=== PATIENT | male | born 1955 | race Caucasian/White ===

== ENCOUNTER 2021-08-25 03:49 | Observation (INO) ==
[2021-08-25] MEDS ORDERED: NS 0.9% 1000 ml BAG 1,000 ML IV ONE (04:06)
[2021-08-25] MEDS ORDERED: Albuterol/Ipratropium NEB.SOL (2.5/0.5 MG) 3 ML NEB.SOLN INH ONE ×2 (04:08→05:12)
[2021-08-25 04:39] LABS: ABS Lymphocytes 0.4 10^3/ul (1.0-4.8); ABS Monocytes 0.8 10^3/ul (0-0.8); ABS Neutrophils 11.8 10^3/ul (1.5-7.7); Eosinophil % 0.3 %; Hematocrit 43 % (42-52); Hemoglobin 14.1 g/dL (14.0-18.0); Lymphocyte % 3.2 %; Mean Corpuscular HGB Conc 33 g/dL (31-36); Mean Corpuscular Hemoglobin 32 pg (27-31); Mean Corpuscular Volume 97 fL (80-94); Mean Platelet Volume 6.8 fL (7.4-10.4); Platelet Count 235 10^3/uL (150-450); Red Blood Count 4.42 10^6 /uL (4.18-5.48); Red Cell Distribution Width 14 % (10-15); White Blood Count 13.1 10^3/uL (3.5-10.8)
[2021-08-25 05:17] LABS: Albumin/Globulin Ratio 1.3 (1-3); C Reactive Protein 59.68 mg/L (<8.01); Calcium 8.7 mg/dL (8.6-10.3); Globulin 3.1 g/dL (2-4); Potassium 3.8 mmol/L (3.5-5.0); Total Bilirubin 0.5 mg/dL (0.2-1.0); Total Protein 7.1 g/dL (6.4-8.9); eGFR CKD-EPI 86.1 (>60)
[2021-08-25] MEDS ORDERED: cefTRIAXone 1 gm/50 mL D5W 1 GM/50 ML BAG IV ONE (05:40)
[2021-08-25 05:42] LABS: Urine Appearance Cloudy; Urine Bilirubin Negative (Negative); Urine Blood 2+ (Negative); Urine Color Straw; Urine Glucose 3+(>=500 mg/dL) (Negative); Urine Ketones Negative (Negative); Urine Nitrite Negative (Negative); Urine Protein Negative (Negative); Urine Specific Gravity 1.009 (1.002-1.030); Urine Urobilinogen Negative (Negative)
[2021-08-25 05:46] LABS: Urine Bacteria Absent (Absent); Urine Red Blood Cell 3+(>10/hpf) (Absent); Urine Squamous Epithelial Cell Present (Absent); Urine White Blood Cell 3+(>20/hpf) (Absent)
[2021-08-25 06:06] LABS: High Sensitivity Troponin 1 Hr 27 pg/mL (<20)
[2021-08-25] MEDS ORDERED: Albuterol 2.5mg/3 ml (0.083%) NEB.SOLN INH PRN (09:35)
[2021-08-25] MEDS ORDERED: Albuterol HFA INHALER 8 gm MDI INH PRN (09:36)
[2021-08-25] MEDS ORDERED: Magnesium Sulfate 2 gm BAG 2 GM/50 ML BAG IVPB ONE (09:39)
[2021-08-25] MEDS ORDERED: Enoxaparin 40 MG/0.4 ML SYR SUBCUT SCH (10:00)
[2021-08-25] MEDS ORDERED: Azithromycin 500 mg/250 mL NS IVPB ONE (11:30)
[2021-08-25] MEDS: methylPREDNISolone SOD SUCC 40 mg/ml 1 ml VIAL IV SCH ×2 (11:52→18:12)
[2021-08-25] MEDS: Mometasone/Formoter 200/5 MDI INH SCH ×2 (13:11→18:12)
[2021-08-26] MEDS: methylPREDNISolone SOD SUCC 40 mg/ml 1 ml VIAL IV SCH (03:08)
[2021-08-26 03:46] VITALS: BP 113/67
[2021-08-26] MEDS: Mometasone/Formoter 200/5 MDI INH SCH (07:08)
[2021-08-26] MEDS ORDERED: Azithromycin 500 mg/250 ml NS 500 MG/250 ML BAG IVPB SCH (13:00)
== END 2021-08-26 07:20 | disposition left against medical advice (07) ==
LOC: ED 03:49 → EDHOLD 03:49 → SUATTDRO 09:37 → MED 20:01
PROVIDERS: ADMIT Hospitalist; ATTEND Hospitalist